=== PATIENT | female | born 1985 | race Caucasian/White ===

== ENCOUNTER 2016-07-05 20:06 | Emergency (ER) | payer OTHER ==
[2016-07-05] MEDS ORDERED: DIPH/PERTUSS(ACELL)/TETANUS VAC/PF 0.5 ML SYR (>=10YO) IM ONE (21:58)
--- NOTE | 2016-07-05 21:59 | ER Document Report ---
ED Medical Screen (RME) - General Chief Complaint: Laceration Stated Complaint: FINGER LACERATION Mode of Arrival: Ambulatory Information source: Patient Notes: Patient cut her left thumb on a can lid about 5 hours ago. Patient with 0.5 cm laceration to lateral side of left thumb. I have greeted and performed a rapid initial assessment of this patient. A comprehensive ED assessment and evaluation of the patient, analysis of test results and completion of the medical decision making process will be conducted by additional ED providers. TRAVEL OUTSIDE OF THE [place] IN LAST 30 DAYS: No - Related Data Allergies/Adverse Reactions: No Known Allergies Allergy (Unverified 10/06/15 16:06) Past Medical History Neurological Medical History: Reports: Hx Migraine Past Surgical History: Reports: Hx Section, Hx Cholecystectomy - Immunizations Immunizations up to date: Yes Hx Diphtheria, Pertussis, Tetanus Vaccination: Yes Physical Exam - Vital signs Vitals: Temp Pulse Resp BP Pulse Ox 97.9 F 73 18 133/85 H 100 07/05/16 21:49 07/05/16 21:49 07/05/16 21:49 07/05/16 21:49 07/05/16 21:49 - Skin Skin irregularity: Laceration - Left thumb Course - Vital Signs Vital signs: Temp Pulse Resp BP Pulse Ox 97.9 F 73 18 133/85 H 100 07/05/16 21:49 07/05/16 21:49 07/05/16 21:49 07/05/16 21:49 07/05/16 21:49
--- NOTE | 2016-07-05 23:26 | ER Document Report ---
ED Wound - General Mode of Arrival: Ambulatory Information source: Patient TRAVEL OUTSIDE OF THE [place] IN LAST 30 DAYS: No - HPI Patient complains to provider of: Laceration Occurred: This afternoon - 1700 Onset/Duration: Sudden Context: Work related <CHARISMA AMRIANO - Last Filed: 07/06/16 02:03> <DONMARGA ANN - Last Filed: 07/06/16 04:42> - General Chief Complaint: Laceration Stated Complaint: FINGER LACERATION Notes: Patient is a 31-year-old female presenting to the emergency department due to laceration to her left thumb at approximately 1700. Patient states that she was opening a can at work and when she was trying to remove the top, it sliced her. Patient denies any other injuries and states she is up-to-date on all her vaccinations. (CHARISMA MARIANO) - Related Data Allergies/Adverse Reactions: No Known Allergies Allergy (Unverified 10/06/15 16:06) Past Medical History - General Information source: Patient - Social History Smoking Status: Never Smoker Frequency of alcohol use: Occasional Drug Abuse: None Family History: Reviewed & Not Pertinent Patient has suicidal ideation: No Patient has homicidal ideation: No Neurological Medical History: Reports: Hx Migraine Renal/ Medical History: Denies: Hx Peritoneal Dialysis Past Surgical History: Reports: Hx Section, Hx Cholecystectomy - Immunizations Immunizations up to date: Yes Hx Diphtheria, Pertussis, Tetanus Vaccination: Yes <CHARISMA MARIANO - Last Filed: 07/06/16 02:03> Review of Systems - Review of Systems Constitutional: No symptoms reported EENT: No symptoms reported Cardiovascular: No symptoms reported Respiratory: No symptoms reported Gastrointestinal: No symptoms reported Genitourinary: No symptoms reported Female Genitourinary: No symptoms reported Musculoskeletal: No symptoms reported Skin: See HPI, Other - Laceration to left thumb. Hematologic/Lymphatic: No symptoms reported Neurological/Psychological: No symptoms reported -: Yes All other systems reviewed and negative <CHARISMA MARIANO - Last Filed: 07/06/16 02:03> Physical Exam - General General appearance: Alert In distress: None - HEENT Head: Normocephalic, Atraumatic Eyes: Normal Pupils: PERRL - Respiratory Respiratory status: No respiratory distress Breath sounds: Normal - Cardiovascular Rhythm: Regular Heart sounds: Normal auscultation Murmur: No - Abdominal Inspection: Normal Tenderness: Nontender - Back Back: Normal, Nontender - Extremities General lower extremity: Normal inspection, Nontender Hand: Laceration - History of 0.5 cm laceration to the radial aspect of the left thumb. - Neurological Neuro grossly intact: Yes Cognition: Normal [place]etrio Coma Scale Eye Opening: Spontaneous [place] Coma Scale Verbal: Oriented [place] Coma Scale Motor: Obeys Commands [place] Coma Scale Total: 15 Speech: Normal - Psychological Associated symptoms: Normal affect, Normal mood - Skin Skin Temperature: Warm Skin Moisture: Dry Skin irregularity: Laceration - See extremity exam. <CHARISMA MARIANO - Last Filed: 07/06/16 02:03> Course <CHARISMA MARIANO - Last Filed: 07/06/16 02:03> <MARGA OCHOA - Last Filed: 07/06/16 04:42> - Re-evaluation Re-evalutation: 07/06/16 Patient laceration to her left thumb. Closed with Dermabond. Splint so that she would not be able to reopen it. Patient will be given a work note. Her tetanus is up-to-date. She'll be discharged home with Keflex. (MARGA OCHOA) - Vital Signs Vital signs: Temp Pulse Resp BP Pulse Ox 97.9 F 73 18 133/85 H 100 07/05/16 21:55 07/05/16 21:55 07/05/16 21:55 07/05/16 21:55 07/05/16 21:55 (CHARISMA MARIANO) (MARGA OCHOA) Procedures - Immobilization Left Thumb Pre-Proc Neuro Vasc Exam: Normal Immobilizer type: Finger protection Performed by: RN Post-Proc Neuro Vasc Exam: Normal Alignment checked and good: Yes - Laceration/Wound Repair Left Thumb Wound length (cm): 0.5 Wound's Depth, Shape: Superficial, Linear Laceration pre-procedure: Sterile PPE donned Wound explored: Clean Wound Repaired With: Dermabond Layer Closure?: No Post-procedure wound care: Splint applied Post-procedure NV exam normal: Yes Complications: No <MARGA OCHOA - Last Filed: 07/06/16 04:42> Discharge <CHARISMA MARIANO - Last Filed: 07/06/16 02:03> <MARGA OCHOA - Last Filed: 07/06/16 04:42> - Discharge Clinical Impression: Thumb laceration Qualifiers: Encounter type: initial encounter Laterality: left Qualified Code(s): S61.012A - Laceration without foreign body of left thumb without damage to nail, initial encounter Condition: Stable Disposition: HOME, SELF-CARE Instructions: Laceration Care ([facility]), Skin Adhesive Closure ([facility]) Prescriptions: Cephalexin Monohydrate [Keflex 500 mg Capsule] 500 mg PO QID #20 capsule Forms: Return to Work Scribe Attestation: 07/06/16 04:42 I personally performed the services described in the documentation, reviewed and edited the documentation which was dictated to the scribe in my presence, and it accurately records my words and actions. (MARGA OCHOA) Scribe Documentation - Scribe Written by Scribe:: Charisma Mariano 07/05/2016 [id number] acting as scribe for :: Don <CHARISMA MARIANO - Last Filed: 07/06/16 02:03>
[2016-07-06 06:56] VITALS: BP 127/75
== END 2016-07-06 01:23 | disposition home or self-care (01) ==
LOC: ER 20:06
DX: S61.012A Laceration without foreign body of left thumb without damage to nail, initial encounter (principal); W26.8XXA Contact with other sharp object(s), not elsewhere classified, initial encounter; Y93.89 Activity, other specified; Y99.0 Civilian activity done for income or pay
CPT/HCPCS: 99282